=== PATIENT | male | born 1950 | race Caucasian/White ===

== ENCOUNTER 2016-12-19 15:13 | Emergency (ER) | payer OTHER ==
[~2016-12-19] VITALS: Ht 162.6 cm; Wt 72.6 kg
[~2016-12-19 15:13] MED LIST: FINA5TAB1 PO; NIFE30TE8 PO
[2016-12-19 15:22] VITALS: BP 154/75
--- NOTE | 2016-12-19 16:08 | NUR ---
PATIENT TO ER BED 4.
--- NOTE | 2016-12-19 16:11 | NUR ---
EPatient being evaluated by physician at bedside.
[2016-12-19] MEDS ORDERED: LIDOCAINE VISCOUS 2% 20 ML UDC PO ONE (16:15)
--- NOTE | 2016-12-19 16:38 | NUR ---
66/M TO ED WITH C/O SOMETHING IN HIS THROAT STARTING LAST NIGHT. PT STATES HE CANNOT SWALLOW. LUNGS CLEAR BILAT. DENIES PAIN. HR EVEN AND REGULAR. AAOX4. VSS. NO SIGNS OF DISTRESS.
[2016-12-19 18:23] VITALS: BP 151/82
--- NOTE | 2016-12-19 18:26 | NUR ---
Patient discharged with v/s stable. Written and verbal after care instructions given and explained. Patient alert, oriented and verbalized understanding of instructions. Ambulatory with steady gait. All questions addressed prior to discharge. ID band removed. Patient advised to follow up with PMD. Rx of CHLORASEPTIC AND MOTRIN given. Patient educated on indication of medication including possible reaction and side effects. Opportunity to ask questions provided and answered.
== END 2016-12-19 18:26 | disposition home or self-care (01) ==
LOC: MED 15:13
DX: J02.9 Acute pharyngitis, unspecified (principal); E04.1 Nontoxic single thyroid nodule; I10 Essential (primary) hypertension
CPT/HCPCS: 70360; 70490; 93005; 99284

== ENCOUNTER 2017-07-22 18:36 | Inpatient (IN) | payer OTHER ==
[~2017-07-22] VITALS: Ht 165.1 cm; Wt 60.8 kg
[2017-07-22 18:54] VITALS: BP 132/72
--- NOTE | 2017-07-22 19:38 | NUR ---
PT TAKEN TO BED 9
--- NOTE | 2017-07-22 19:45 | NUR ---
67/M C/O 8/10 RLQ ABDOMINAL PAIN, NONRADIATING WITH NAUSEA X 1 DAY. PT DENIES VOMITING. PT REPORTS HE HAD FEVER TODAY, CURRENT TEMP 99.1. BOWEL SOUNDS ACTIVE X 4, TENDERNESS TO RLQ. PT REPORTS HE WAS CONSTIPATED YESTERDAY. PT REPORTS HE WAS PRESCRIBED ANTIBIOTICS BY PCP 2 WEEKS AGO FOR URINARY INFECTION. PMH: HLD, HTN, BPH, HEP C. RX: ADALAT. DENIES V/D; SKIN IS PINK/WARM/DRY; AAOX4 WITH EVEN AND STEADY GAIT; LUNGS CLEAR BL; HR EVEN AND REGULAR; PT DENIES ANY CP, SOB, OR COUGH AT THIS TIME; PATIENT POSITIONED FOR COMFORT; HOB ELEVATED; BEDRAILS UP X2; BED DOWN. ER MD MADE AWARE OF PT STATUS.
--- NOTE | 2017-07-22 20:15 | NUR ---
Dr. Gan evaluating patient at bedside.
[2017-07-22 21:11] LABS: HEMATOCRIT 42.9 % (36-52); HEMOGLOBIN 14.2 g/dL (12.0-18.0); MEAN CORPUSCULAR HEMOGLOBIN 28 pg (27-31); MEAN CORPUSCULAR HGB CONC 33 g/dL (33-37); MEAN CORPUSCULAR VOLUME 86 fL (80-94); PLATELET COUNT (AUTO) 242 K/uL (140-450); RED BLOOD CELL COUNT(AUTO) 4.99 MIL/uL (4.20-6.10); RED CELL DISTRIBUTION WIDTH 12.9 % (11.6-13.7); WHITE BLOOD COUNT (AUTO) 17.9 K/uL (4.8-10.8)
[2017-07-22 21:13] LABS: APPEARANCE,URINE CLEAR (CLEAR); BILIRUBIN,URINE 1+ (NEGATIVE); BLOOD, URINE 3+ (NEGATIVE); LEUKOCYTE ESTERASE ,URINE NEGATIVE (NEGATIVE); NITRITE, URINE NEGATIVE (NEGATIVE); PH,URINE 5.5 (5.0-9.0); UGLUCOSE 1+ (NEGATIVE)
[2017-07-22 21:15] LABS: COLOR,URINE AMBER (YELLOW)
[2017-07-22 21:18] LABS: ANION GAP 8.3 (8-16); CARBON DIOXIDE 31.1 mmol/L (21-32); CREATININE 0.9 mg/dL (0.7-1.3); POTASSIUM 3.4 mmol/L (3.5-5.1)
[2017-07-22 21:25] LABS: RBC,URINE TOO NUMEROUS TO COUN /HPF (0-5); WBC,URINE NONE SEEN /HPF (0-5)
[2017-07-22 21:25] LABS: ALBUMIN 3.7 g/dL (3.4-5.0); TOTAL BILIRUBIN 1.7 mg/dL (0.0-1.0)
[2017-07-22 21:30] LABS: EOSINOPHILS % (MANUAL) 1 % (0-4); LYMPHOCYTES % (MANUAL) 11 % (20-46); MONOCYTES % (MANUAL) 8 % (5-12)
[2017-07-22] MEDS ORDERED: LEVOFLOXACIN 500 MG/D5W PREMIX 100 ML IV ONE (21:35)
[2017-07-22] MEDS ORDERED: metroNIDAZOLE 500 MG/NS PREMIX 100 ML IV ONE (21:35)
[2017-07-22] MEDS ORDERED: MORPHINE SULFATE 4 MG/ML SYR IVP ONE (21:40)
[2017-07-22] MEDS ORDERED: MORPHINE SULFATE 2 MG/ML SYR IVP PRN (22:00)
[2017-07-22] MEDS ORDERED: DOCUSATE SODIUM 100 MG GELCAP PO PRN (22:00)
[2017-07-22] MEDS ORDERED: HYDROcodone/APAP 7.5/325 MG 1 TAB PO PRN (22:00)
[2017-07-22] MEDS ORDERED: ONDANSETRON 4 MG/2 ML VIAL IM/IVP PRN (22:00)
[2017-07-22] MEDS ORDERED: ACETAMINOPHEN 325 MG TAB PO PRN (22:00)
--- NOTE | 2017-07-22 22:11 | NUR ---
X-Ray at bedside.
--- NOTE | 2017-07-22 22:24 | NUR ---
Dr. Aaron evaluating patient at bedside.
--- NOTE | 2017-07-22 22:40 | NUR ---
GAVE REPORT TO MARYCRUZ SMITH AT [facility] FOR TRANSFER OF CARE
[2017-07-22 22:45] LABS: CHOL/HDL RATIO 2.8 (1-4.5); FREE T4 (FREE THYROXINE) 0.9 ng/dL (0.76-1.46); PHOSPHORUS 3.2 mg/dL (2.5-4.9); THYROID STIMULATING HORMONE 0.34 uIU/mL (0.34-3.74)
[2017-07-22 22:48] LABS: PROTHROMBIN TIME 11.6 secs (10.8-13.4)
--- NOTE | 2017-07-22 22:50 | NUR ---
NO PATENT IV ACCESS AT THIS TIME. REPORTED TO HOLLY SMITH FROM TELE TO HANG ZEINAB AND YL IVPB ORDERED ONCE THERE'S IV ACCESS.
--- NOTE | 2017-07-22 22:58 | NUR ---
Patient will be admitted to care of [facility]. Admited to TELE. Will go to room 120A. Belongings list completed. Report to MARYCRUZ SMITH.
--- NOTE | 2017-07-22 23:40 | NUR ---
PATIENT ADMITTED TO THE UNIT VIA ED, BROUGHT BY ANTONIO. PATIENT ABLE TO AMBULATE SELF TO BED WITH NO ASSISTANCE. PATIENT IS AAOX4 ON ROOM AIR. NO SOB OR SIGN OF DISTRESS, IV TO LEFT KNUCKLE UNSTABLE, CHARGE NURSE TO INSERT NEW IV. SKIN INTACT, PATIENT C/O PAIN TO ABDOMEN, MD TO PUT IN MEDICATION, WILL F/U. ORIENTED PATIENT TO ROOM AND CALL LIGHT. DISCUSSED PLAN OF CARE WITH PATIENT. PATIENT VERBALIZED UNDERSTANDING. CALL LIGHT WITHIN REACH. WILL CONTINUE TO MONITOR.
[2017-07-23] VITALS: BP 145/78
[2017-07-23] MEDS: DEXT 5% /NACL 0.9% 1,000 ML IV SCH
[2017-07-23] MEDS ORDERED: POTASSIUM CHLORIDE 10 MEQ TABER PO SCH
[2017-07-23] MEDS: NACL 0.9% 1,000 ML IV SCH ×3 (00:25→17:58)
--- NOTE | 2017-07-23 00:30 | NUR ---
NEW IV STARTED TO LEFT FA 22G, PATENT AND INTACT. PATIENT TOLERATED WELL. ORDERED ABX ADMINISTERED, CALL LIGHT WITHIN REACH. WILL CONTINUE TO MONITOR.
--- NOTE | 2017-07-23 01:55 | NUR ---
PATIENT SLEEPING, NO DISTRESS, CALL LIGHT WITHIN REACH. WILL CONTINUE TO MONITOR.
--- NOTE | 2017-07-23 03:30 | NUR ---
PATIENT SLEEPING. NO SIGNS OF PAIN NOTED. PT IS ON CONTACT ISOLATION FOR POSSIBLE C DIFF. PROTOCOL IN PLACE.
[2017-07-23 04:00] VITALS: BP 140/76
[2017-07-23] MEDS: metroNIDAZOLE 500 MG/NS PREMIX 100 ML IV SCH ×3 (05:31→21:14)
[2017-07-23 05:50] LABS: HEMATOCRIT 38.9 % (36-52); HEMOGLOBIN 12.9 g/dL (12.0-18.0); MEAN CORPUSCULAR HEMOGLOBIN 28 pg (27-31); MEAN CORPUSCULAR HGB CONC 33 g/dL (33-37); MEAN CORPUSCULAR VOLUME 85 fL (80-94); PLATELET COUNT (AUTO) 200 K/uL (140-450); RED BLOOD CELL COUNT(AUTO) 4.56 MIL/uL (4.20-6.10); RED CELL DISTRIBUTION WIDTH 12.8 % (11.6-13.7)
--- NOTE | 2017-07-23 06:00 | NUR ---
DUE MEDS GIVEN. PATIENT SLEEPING. NO DISTRESS. CALL LIGHT WITHIN REACH.
[2017-07-23 06:13] LABS: ANION GAP 9.5 (8-16); CARBON DIOXIDE 28.2 mmol/L (21-32); CREATININE 0.7 mg/dL (0.7-1.3); POTASSIUM 3.7 mmol/L (3.5-5.1)
[2017-07-23 07:08] LABS: LYMPHOCYTES % (MANUAL) 12 % (20-46); MONOCYTES % (MANUAL) 8 % (5-12)
--- NOTE | 2017-07-23 07:20 | NUR ---
ASSUMED CONTINUITY OF CARE. NO SIGNS AND SYMPTOMS OF ACUTE DISTRESS NOTED. INITIAL ASSESSMENT DONE. KEEP COMFORTABLE ON BED. EXPLAINED DIAGNOSIS, PLAN OF CARE, PAIN MANAGEMENT TEACHING, CONTACT ISOLATION PRECAUTION, USE OF CALL LIGHT/BED/TV/BATHROOM. VERBALIZED UNDERSTANDING. CALL LIGHT WITHIN REACH.
--- NOTE | 2017-07-23 07:20 | NUR ---
ENDORSED PT TO DAY SHIFT NURSE. PT IN STABLE CONDITION.
[2017-07-23 08:00] VITALS: BP 138/75
--- NOTE | 2017-07-23 08:00 | NUR ---
Patient's Plan of Care was discussed and reviewed with BRICK MASON: ROSELIA CASILLAS
[2017-07-23] MEDS: NIFEdipine 30 MG TABER PO SCH ×2 (09:00→21:14)
--- NOTE | 2017-07-23 09:02 | NUR ---
SPOKE WITH FIDELIA FROM [facility]. FAXED INITIAL REVIEW TO [facility] [phone] PHONE FIDELIA [phone]
--- NOTE | 2017-07-23 09:13 | NUR ---
PATIENT HAS BEEN SCREENED AND CATEGORIZED MODERATE NUTRITION RISK. PATIENT WILL BE SEEN WITHIN 3-5 DAYS OF ADMISSION. 07/25/17-07/27/[address]
[2017-07-23] MEDS: LACTOBACILLUS RHAMNOSUS GG 1 EACH CAP PO SCH (09:17)
[2017-07-23] MEDS: FINASTERIDE 5 MG TAB PO SCH (09:17)
[2017-07-23] MEDS: PANTOPRAZOLE 40 MG INJ VIAL IVP SCH (10:03)
[2017-07-23 12:00] VITALS: BP 136/79
--- NOTE | 2017-07-23 12:02 | NUR ---
RECEIVED A CALL FROM FIDELIA FROM [facility]. HE NEEDS THE RESIDENT TO CALL DR. NUGENT AT [phone]. DR. LAURA MAGUIRE.
[2017-07-23] MEDS ORDERED: DOL10 PO (12:43)
[2017-07-23] MEDS: KETOROLAC 30 MG/ML VIAL IVP PRN ×2 (13:28→21:20)
--- NOTE | 2017-07-23 15:00 | NUR ---
EXPLAINED AND EDUCATED PT. ABOUT C-DIFF POSITIVE RESULTS AND CONTACT ISOLATION PRECAUTION. VERBALIZED UNDERSTANDING.
[2017-07-23 16:00] VITALS: BP 135/76
--- NOTE | 2017-07-23 19:12 | NUR ---
BEDSIDE REPORT GIVEN TO LIZ MAZA. IVF INFUSING WELL. IN STABLE CONDITION.
--- NOTE | 2017-07-23 19:15 | NUR ---
RECEIVED REPORT FROM AM NURSE. PT RESTING IN BED, AOX4, AMBULATORY, ABLE TO VERBALIZE NEEDS. PANTRY GOODS MAKER IN PLACE. PT DENIES CHEST PAIN, SOB OR S/S OF ACUTE DISTRESS. PT C/O RLQ PAIN, NO REBOUND TENDERNESS. SEE PAIN ASSESSMENT. WILL ADMINISTER PAIN MED ORDERED. PT DENIES NAUSEA/VOMITING. IV ACCESS ASYMPTOMATIC, PATENT AND INTACT. IVF INFUSING WELL. DISCUSSED AND REVIEWED PLAN OF CARE WITH PT. PT VERBALIZED UNDERSTANDING. ALL NEEDS MET. SAFETY MEASURES ENSURED. CALL LIGHT WITHIN REACH. WILL CONTINUE TO MONITOR.
[2017-07-23 20:00] VITALS: BP 162/87
--- NOTE | 2017-07-23 20:21 | NUR ---
PT C/O PAIN. SEE PAIN ASSESSMENT. ADMINISTERED TORADOL IVP PRN ORDERED. ADMINISTERED DUE MEDS WITH EDUCATION. PT VERBALIZED UNDERSTANDING, TOLERATED MEDS WELL. ALL NEEDS MET. IVPB INFUSING WELL. SAFETY MEASURES ENSURED. CALL LIGHT WITHIN REACH. WILL CONTINUE TO MONITOR.
[2017-07-23] MEDS ORDERED: LEVOFLOXACIN 500 MG/D5W PREMIX 100 ML IV SCH (21:00)
[2017-07-23] MEDS ORDERED: metroNIDAZOLE 500 MG/NS PREMIX 100 ML IV SCH (21:00)
[2017-07-23] MEDS ORDERED: INFLUENZA VIRUS VACCINE QUAD 0.5 ML SYR IMVAC SCH (23:40)
[2017-07-23] MEDS ORDERED: PNEUMOCOCCAL VACCINE 23 MCG/0.5 ML VIAL IMVAC SCH (23:40)
[2017-07-24] VITALS: BP 154/76
--- NOTE | 2017-07-24 00:10 | NUR ---
PT SLEEPING COMFORTABLY, NO S/S OF ACUTE DISTRESS. ALL NEEDS MET. IVF INFUSING WELL. SAFETY MEASURES ENSURED. CALL LIGHT WITHIN REACH. WILL CONTINUE TO MONITOR.
--- NOTE | 2017-07-24 02:05 | NUR ---
PT SLEEPING COMFORTABLY, NO S/S OF ACUTE DISTRESS. ALL NEEDS MET. IVF INFUSING WELL. SAFETY MEASURES ENSURED. CALL LIGHT WITHIN REACH. WILL CONTINUE TO MONITOR.
[2017-07-24 04:00] VITALS: BP 138/68
[2017-07-24] MEDS: metroNIDAZOLE 500 MG/NS PREMIX 100 ML IV SCH ×3 (04:59→20:36)
--- NOTE | 2017-07-24 04:59 | NUR ---
ADMINISTERED DUE MED WITH EDUCATION. PT STATED "OK." NO S/S OF DISTRESS. ALL NEEDS MET. IVPB INFUSING WELL. SAFETY MEASURES ENSURED. CALL LIGHT WITHIN REACH. WILL CONTINUE TO MONITOR.
[2017-07-24 06:56] LABS: HEMATOCRIT 40.5 % (36-52); HEMOGLOBIN 13.6 g/dL (12.0-18.0); MEAN CORPUSCULAR HEMOGLOBIN 29 pg (27-31); MEAN CORPUSCULAR HGB CONC 34 g/dL (33-37); MEAN CORPUSCULAR VOLUME 86 fL (80-94); PLATELET COUNT (AUTO) 197 K/uL (140-450); RED BLOOD CELL COUNT(AUTO) 4.72 MIL/uL (4.20-6.10); RED CELL DISTRIBUTION WIDTH 12.8 % (11.6-13.7); WHITE BLOOD COUNT (AUTO) 10.1 K/uL (4.8-10.8)
--- NOTE | 2017-07-24 07:14 | NUR ---
ENDORSED PLAN OF CARE TO AM NURSE. CONDITION STABLE.
--- NOTE | 2017-07-24 07:15 | NUR ---
RECEIVED REPORT FROM MEAT CUTTER APPRENTICE RN. PATIENT IS AAOX4, LUNG SOUNDS ARE CLEAR, BOWEL SOUNDS ARE ACTIVE. NO SIGN AND SYMPTOMS OF DISTRESS NOTED AT THIS TIME. BED IS IN LOWEST POSITION, SIDERAILS UP X2, CALL LIGHT WITHIN REACH. INSTRUCTED PATIENT TO USE CALL LIGHT IF HAS ANY NEEDS, VERBALIZED UNDERSTANDING. WILL CONTINUE TO MONITOR.
[2017-07-24 07:35] LABS: CARBON DIOXIDE 30.4 mmol/L (21-32); CREATININE 0.6 mg/dL (0.7-1.3); POTASSIUM 3.4 mmol/L (3.5-5.1)
[2017-07-24 08:00] VITALS: BP 152/71
[2017-07-24 08:20] LABS: T4 (THYROXINE) 7.5 ug/dL (4.5-12.0)
--- NOTE | 2017-07-24 08:35 | NUR ---
FAXED CONCURRENT REVIEW TO [facility] [phone] PHONE FIDELIA [phone] ALSO FAXED ORDER FOR TRANSFER TO CONTRACTED FACILITY.
[2017-07-24 08:56] LABS: LYMPHOCYTES % (MANUAL) 12 % (20-46); MONOCYTES % (MANUAL) 13 % (5-12)
--- NOTE | 2017-07-24 09:00 | NUR ---
PATIENT ON FULL LIQUIDS, TOLERATING WELL.
[2017-07-24] MEDS: PANTOPRAZOLE 40 MG INJ VIAL IVP SCH (09:29)
[2017-07-24] MEDS: METHADONE 10 MG TAB PO SCH (09:30)
[2017-07-24] MEDS: NIFEdipine 30 MG TABER PO SCH ×2 (09:30→20:35)
[2017-07-24] MEDS: FINASTERIDE 5 MG TAB PO SCH (09:30)
[2017-07-24] MEDS: LACTOBACILLUS RHAMNOSUS GG 1 EACH CAP PO SCH (09:30)
--- NOTE | 2017-07-24 09:34 | NUR ---
SPOKE WITH FIDELIA FROM [facility]. HE SAID THEY PROBABLY WON'T TRANSFER THE PATIENT. HE SAID HE WOULD SPEAK WITH HIS PHYSICIAN.
[2017-07-24] MEDS: DEXT 5% /NACL 0.9% 1,000 ML IV SCH ×2 (09:40→19:40)
[2017-07-24 12:00] VITALS: BP 158/79
[2017-07-24] MEDS ORDERED: POTASSIUM CHLORIDE 10 MEQ TABER PO SCH (12:00)
[2017-07-24] MEDS: VANCOMYCIN 500 MG VIAL PO SCH ×2 (12:26→17:45)
[2017-07-24] MEDS: PHARMACY COMMENTS MC SCH (12:31)
--- NOTE | 2017-07-24 14:35 | NUR ---
ENDORSED PATIENT TO BERENICE SMITH FOR CONTINUITY OF CARE. PATIENT IN STABLE CONDITION.
--- NOTE | 2017-07-24 14:40 | NUR ---
RECEIVED REPORT FROM LUIS WILKINSON. PT IS AWAKE RESTING IN BED, PT IS A/OX4, AMBULATORY, PT HAS IV ON THE LEFT FA, PATENT, INTACT, FLUSHING WELL, NO S/S OF RESPIRATORY DISTRESS OR DISCOMFORT NOTED, SAFETY/FALL PRECAUTIONS ARE IN PLACE, CALL LIGHT IS WITHIN REACH, WILL CONTINUE TO MONITOR.
[2017-07-24 16:00] VITALS: BP 148/64
--- NOTE | 2017-07-24 16:12 | NUR ---
PROVIDED PT A CLEAN GOWN AND CLEAN BLANKET, ALL NEEDS ARE MET AT THIS TIME, CALL LIGHT WITHIN REACH, WILL CONTINUE TO MONITOR.
--- NOTE | 2017-07-24 19:15 | NUR ---
ENDORSED PT TO ASSISTANT CLINICAL NURSE MANAGER NURSE FOR CONTINUITY OF CARE, PT STABLE AT THIS TIME.
--- NOTE | 2017-07-24 19:20 | NUR ---
RECEIVED REPORT FROM AM NURSE. PT RESTING IN BED, AOX4, AMBULATORY, ABLE TO VERBALIZE NEEDS. DINING ROOM MAID IN PLACE. PT DENIES CHEST PAIN, SOB OR S/S OF ACUTE DISTRESS. PT DENIES ABD PAIN, NO REBOUND TENDERNESS. PT DENIES NAUSEA/VOMITING, REPORTS BEING ABLE TO TOLERATE FULL LIQUID DIET, WILL NOTIFY MD. PT REPORTS HAVING 3X BM DURING THE DAY, DESCRIBES STOOL "IT'S NOT LIQUID ANYMORE, GETTING BETTER" IV ACCESS ASYMPTOMATIC, PATENT AND INTACT. IVF INFUSING WELL. DISCUSSED AND REVIEWED PLAN OF CARE WITH PT. PT VERBALIZED UNDERSTANDING. ALL NEEDS MET. SAFETY MEASURES ENSURED. CALL LIGHT WITHIN REACH. WILL CONTINUE TO MONITOR.
[2017-07-24 20:00] VITALS: BP 146/66
--- NOTE | 2017-07-24 20:38 | NUR ---
ADMINISTERED DUE MEDS WITH EDUCATION. PT VERBALIZED UNDERSTANDING, TOLERATED MEDS WELL. ALL NEEDS MET. IVPB INFUSING WELL. SAFETY MEASURES ENSURED. CALL LIGHT WITHIN REACH. WILL CONTINUE TO MONITOR.
[2017-07-24] MEDS ORDERED: INFLUENZA VIRUS VACCINE QUAD 0.5 ML SYR IMVAC PRN (22:25)
[2017-07-24] MEDS ORDERED: PNEUMOCOCCAL VACCINE 23 MCG/0.5 ML VIAL IMVAC PRN (22:25)
[2017-07-25] VITALS: BP 137/56
[2017-07-25] MEDS: VANCOMYCIN 500 MG VIAL PO SCH ×3 (00:03→12:03)
[2017-07-25] MEDS: NACL 0.9% 1,000 ML IV SCH ×2 (00:05→09:55)
--- NOTE | 2017-07-25 00:05 | NUR ---
PT RESTING COMFORTABLY, NO S/S OF ACUTE DISTRESS. ADMINISTERED DUE MEDS WITH EDUCATION. PT VERBALIZED UNDERSTANDING, TOLERATED MED WELL. ALL NEEDS MET. IVF INFUSING WELL. SAFETY MEASURES ENSURED. CALL LIGHT WITHIN REACH. WILL CONTINUE TO MONITOR.
[2017-07-25 04:00] VITALS: BP 124/63
[2017-07-25] MEDS: metroNIDAZOLE 500 MG/NS PREMIX 100 ML IV SCH ×2 (04:09→15:08)
--- NOTE | 2017-07-25 04:10 | NUR ---
PT SLEEPING COMFORTABLY, AROUSABLE TO NAME. NO S/S OF ACUTE DISTRESS. ADMINISTERED DUE MED WITH EDUCATION. PT VERBALIZED UNDERSTANDING, TOLERATED MED WELL. ALL NEEDS MET. IVF INFUSING WELL. SAFETY MEASURES ENSURED. CALL LIGHT WITHIN REACH. WILL CONTINUE TO MONITOR.
[2017-07-25] MEDS: PHARMACY COMMENTS MC SCH ×3 (05:00→12:00)
[2017-07-25 06:14] LABS: BASOPHILS # (AUTO) 0.4 K/uL (0.00-0.22); BASOPHILS % (AUTO) 4.3 % (0.0-2.0); EOSINOPHILS # (AUTO) 0.2 K/uL (0-0.4); EOSINOPHILS % (AUTO) 1.7 % (0.0-4.0); HEMATOCRIT 38.2 % (36-52); HEMOGLOBIN 12.3 g/dL (12.0-18.0); LYMPHOCYTES # (AUTO) 1.1 K/uL (2.0-11.5); LYMPHOCYTES % (AUTO) 12.6 % (20.5-51.1); MEAN CORPUSCULAR HEMOGLOBIN 28 pg (27-31); MEAN CORPUSCULAR HGB CONC 32 g/dL (33-37); MEAN CORPUSCULAR VOLUME 87 fL (80-94); MONOCYTES # (AUTO) 1.3 K/uL (0.8-1.0); MONOCYTES % (AUTO) 14.9 % (1.7-9.3); NEUTROPHILS # (AUTO) 5.9 K/uL (1.8-7.7); NEUTROPHILS % (AUTO) 66.5 % (42.2-75.2); PLATELET COUNT (AUTO) 226 K/uL (140-450); RED BLOOD CELL COUNT(AUTO) 4.39 MIL/uL (4.20-6.10); WHITE BLOOD COUNT (AUTO) 8.9 K/uL (4.8-10.8)
[2017-07-25 06:38] LABS: ANION GAP 7.4 (8-16); CARBON DIOXIDE 31.6 mmol/L (21-32); CREATININE 0.6 mg/dL (0.7-1.3)
--- NOTE | 2017-07-25 07:22 | NUR ---
ENDORSED PLAN OF CARE TO AM NURSE. CONDITION STABLE.
--- NOTE | 2017-07-25 07:22 | NUR ---
RECEIVED REPORT FROM NIGHT NURSE, PT IS AAOX4, ON ROOM AIR, IV TO LEFT FA 22G INFUSING WELL, SKIN INTACT, INITIAL ASSESSMENT COMPLETED, REVIEWED PLAN OF CARE WITH PT, PT VERBALIZED UNDERSTANDING, ALL SAFETY PRECAUTIONS IN PLACE, CALL LIGHT WITHIN REACH. WILL CONTINUE TO MONITOR.
[2017-07-25 08:00] VITALS: BP 138/54
[2017-07-25] MEDS ORDERED: VAN500I PO (08:44)
[2017-07-25] MEDS ORDERED: METR250T2 PO (08:44)
[2017-07-25] MEDS ORDERED: LACT10CA PO (08:44)
[2017-07-25] MEDS ORDERED: DOL10 PO (08:48)
[2017-07-25] MEDS: NIFEdipine 30 MG TABER PO SCH (09:37)
[2017-07-25] MEDS: PANTOPRAZOLE 40 MG INJ VIAL IVP SCH (09:44)
[2017-07-25] MEDS: LACTOBACILLUS RHAMNOSUS GG 1 EACH CAP PO SCH (09:45)
[2017-07-25] MEDS: FINASTERIDE 5 MG TAB PO SCH (09:45)
[2017-07-25] MEDS: METHADONE 10 MG TAB PO SCH (09:45)
--- NOTE | 2017-07-25 09:52 | NUR ---
DUE MEDICATIONS GIVEN, PT TOLERATED WELL, PT CURRENTLY RESTING IN BED. ALL NEEDS MET. WILL CONTINUE TO MONITOR.
[2017-07-25] MEDS ORDERED: POTASSIUM CHLORIDE 10 MEQ TABER PO SCH (10:00)
[2017-07-25] MEDS ORDERED: POTASSIUM CHLORIDE 20 MEQ, LIDOCAINE 1% 25 MG in NACL 0.9% 250 ML IV SCH (11:00)
[2017-07-25 12:00] VITALS: BP 126/71
--- NOTE | 2017-07-25 12:15 | NUR ---
CHECKED IN ON PT, PT CURRENTLY READING. NO S/S OF DISTRESS NOTED. ALL NEEDS MET. CALL LIGHT WITHIN REACH. WILL CONTINUE TO MONITOR.
--- NOTE | 2017-07-25 14:25 | NUR ---
CHECKED IN ON PT,PT STATES HE HAD 2 SOLID BM. ALL NEEDS MET. CALL LIGHT WITHIN REACH. WILL CONTINUE TO MONITOR.
[2017-07-25] MEDS ORDERED: INFLUENZA VIRUS VACCINE QUAD 0.5 ML SYR IMVAC SCH (15:45)
[2017-07-25 16:00] VITALS: BP 128/71
--- NOTE | 2017-07-25 16:35 | NUR ---
DISCHARGE EDUCATION GIVEN, FOLLOW UP INFORMATION GIVEN, PRESCRIPTION EDUCATION GIVEN, PT VERBALIZED UNDERSTANDING, MEDICATION FROM PHARMACY GIVEN TO PT, IV REMOVED TIP INTACT, ALL PERSONAL BELONGINGS WITH PT. Addendum: 07/25/17 at 1652 by Marcy Nunn RN FLU AND PNEUMONIA VACCINES GIVEN
--- NOTE | 2017-07-25 16:49 | NUR ---
PT WAS WHEELED OUT TO FRONT LOBBY IN STABLE CONDITION, SON IN TO PICK PT UP.
== END 2017-07-25 16:49 | disposition home or self-care (01) | DRG 371 ==
LOC: MED 18:36 → MTU 22:06
PROVIDERS: ADMIT Family Medicine; ATTEND Family Medicine
DX: A04.72 Enterocolitis due to Clostridium difficile, not specified as recurrent (principal); N17.0 Acute kidney failure with tubular necrosis; K82.1 Hydrops of gallbladder; E87.6 Hypokalemia; K80.20 Calculus of gallbladder without cholecystitis without obstruction; I10 Essential (primary) hypertension; N40.0 Benign prostatic hyperplasia without lower urinary tract symptoms; K40.90 Unilateral inguinal hernia, without obstruction or gangrene, not specified as recurrent; K46.9 Unspecified abdominal hernia without obstruction or gangrene; E78.5 Hyperlipidemia, unspecified; K80.80 Other cholelithiasis without obstruction; R31.9 Hematuria, unspecified; G31.89 Other specified degenerative diseases of nervous system; B19.20 Unspecified viral hepatitis C without hepatic coma; E11.9 Type 2 diabetes mellitus without complications; F11.10 Opioid abuse, uncomplicated; Z83.3 Family history of diabetes mellitus
CPT/HCPCS: 36415; 71010; 76705; 76770; 80048; 80053; 81001; 82150; 82272; 83605; 83690; 83735; 84100; 84436; 84439; 84443; 84479; 85025; 85610; 85730; 87040; 87045; 87070; 87081; 87086; 89055; 90658; 90732; 93005; 99285; C9113; J1885; J1956; J2001; J2270; J3370; J3480; J3490; J7030; J7042; Q0092

== ENCOUNTER 2017-08-12 15:46 | Emergency (ER) | payer OTHER ==
[~2017-08-12] VITALS: Ht 162.6 cm; Wt 60.3 kg
[~2017-08-12 15:46] MED LIST changes: +DOL10 PO; +LACT10CA PO; +METR250T2 PO; +VAN500I PO
[2017-08-12 16:08] VITALS: BP 135/70
--- NOTE | 2017-08-12 16:26 | NUR ---
Patient to bed 12.
--- NOTE | 2017-08-12 16:32 | NUR ---
PT REFERRED TO ER PER PCP FOR EVALUATION OF SEVERE LOWER ABDOMINAL PAIN X1 WEEK. PT STATES HE WAS HOSPITALIZED AT [facility] AND WAS DISCHARGED LAST NOC. HX OF HEP C, HYPERLIPIDEMIA, BPH, GALLSTONES, HTN.PT STATES HE ALSO PASSED STONE IN HIS URINE THIS MORNING. FEELS NAUSEOUS DENIES VOMITTING; SKIN IS PINK/WARM/DRY; AAOX4 WITH EVEN AND STEADY GAIT; LUNGS CLEAR BL; HR EVEN AND REGULAR; PT DENIES ANY FEVER, CP, SOB, OR COUGH AT THIS TIME; PATIENT STATES PAIN OF 9/10 AT THIS TIME;PATIENT POSITIONED FOR COMFORT; HOB ELEVATED; BEDRAILS UP X2; BED DOWN. ER MD MADE AWARE OF PT STATUS.
--- NOTE | 2017-08-12 16:41 | NUR ---
DR COOL AT BEDSIDE.
[2017-08-12 17:18] LABS: BASOPHILS # (AUTO) 0.1 K/uL (0.00-0.22); BASOPHILS % (AUTO) 1.2 % (0.0-2.0); EOSINOPHILS # (AUTO) 0.1 K/uL (0-0.4); EOSINOPHILS % (AUTO) 1.1 % (0.0-4.0); HEMATOCRIT 37.2 % (36-52); HEMOGLOBIN 12.7 g/dL (12.0-18.0); LYMPHOCYTES # (AUTO) 0.8 K/uL (2.0-11.5); LYMPHOCYTES % (AUTO) 10.5 % (20.5-51.1); MEAN CORPUSCULAR HEMOGLOBIN 29 pg (27-31); MEAN CORPUSCULAR HGB CONC 34 g/dL (33-37); MEAN CORPUSCULAR VOLUME 84 fL (80-94); MONOCYTES % (AUTO) 25.6 % (1.7-9.3); NEUTROPHILS % (AUTO) 61.6 % (42.2-75.2); PLATELET COUNT (AUTO) 292 K/uL (140-450); RED BLOOD CELL COUNT(AUTO) 4.43 MIL/uL (4.20-6.10)
[2017-08-12 17:44] LABS: ANION GAP 10.9 (8-16); CARBON DIOXIDE 31.5 mmol/L (21-32); CHLORIDE 98 mmol/L (98-107); GFR ARICAN-AMERICAN 96 mL/min (>90); GLUCOSE 104 mg/dL (74-106); POTASSIUM 3.4 mmol/L (3.5-5.1); SODIUM SERUM 137 mmol/L (136-145); UREA NITROGEN, BLOOD 18 mg/dL (7-18)
[2017-08-12 17:51] LABS: ALBUMIN 3.1 g/dL (3.4-5.0); ASPARTATE AMINOTRANSFERASE 22 U/L (15-37); LIPASE 42 U/L (73-393)
[2017-08-12 17:59] LABS: APPEARANCE,URINE CLEAR (CLEAR); BILIRUBIN,URINE NEGATIVE (NEGATIVE); BLOOD, URINE 1+ (NEGATIVE); LEUKOCYTE ESTERASE ,URINE NEGATIVE (NEGATIVE); NITRITE, URINE NEGATIVE (NEGATIVE); UGLUCOSE NEGATIVE (NEGATIVE)
[2017-08-12 18:04] LABS: COLOR,URINE AMBER (YELLOW)
[2017-08-12 18:05] LABS: BARBITURATE, URINE NEG. ng/ml (NEG <=200); BENZODIAZEPINE, URINE NEG. ng/mL (NEG <=200); CANNABINOID, URINE NEG. ng/mL (NEG <=50); COCAINE, URINE POS. ng/mL (NEG <=300); OPIATE, URINE POS. ng/mL (NEG <=2000); PHENCYCLIDINE SCREEN,URINE NEG. ng/mL (NEG <=25)
[2017-08-12 18:19] LABS: CALCIUM OXALATE CRYSTALS,UR 0-10 /HPF (None Seen); RBC,URINE 0-5 (RARE) /HPF (0-5); WBC,URINE 0-5 (RARE) /HPF (0-5)
--- NOTE | 2017-08-12 19:15 | NUR ---
Pt report given to LUIS CORNEJO. Transfer of care at this time.
--- NOTE | 2017-08-12 19:45 | NUR ---
PT RETURN FROM CT
--- NOTE | 2017-08-12 19:48 | NUR ---
Dr. Hernandez evaluating patient at bedside.
--- NOTE | 2017-08-12 20:09 | NUR ---
PATIENT TAKEN TO CT VIA WHEELCHAIR.
[2017-08-12 22:00] VITALS: BP 131/72
--- NOTE | 2017-08-12 22:00 | NUR ---
Patient discharged with v/s stable. Written and verbal after care instructions given and explained. Patient alert, oriented and verbalized understanding of instructions. Ambulatory with steady gait. All questions addressed prior to discharge. ID band removed. Patient advised to follow up with PMD. Rx of FLAGYL 500MG AND BENTYL 20MG given. Patient educated on indication of medication including possible reaction and side effects. Opportunity to ask questions provided and answered.
== END 2017-08-12 22:00 | disposition home or self-care (01) ==
LOC: MED 15:46
DX: R10.9 Unspecified abdominal pain (principal); R30.9 Painful micturition, unspecified; I10 Essential (primary) hypertension; E78.5 Hyperlipidemia, unspecified; Z79.899 Other long term (current) drug therapy
CPT/HCPCS: 36415; 71010; 74177; 80053; 80305; 81001; 82140; 82550; 83690; 84484; 85025; 87040; 93005; 99285; G0482; Q9967

== ENCOUNTER 2018-03-31 11:58 | Emergency (ER) | payer OTHER ==
[~2018-03-31] VITALS: Ht 162.6 cm; Wt 63.5 kg
--- NOTE | 2018-03-31 12:04 | NUR ---
PATIENT TO BED 11 AT THIS TIME.
--- NOTE | 2018-03-31 12:05 | NUR ---
67YO M TO ER FOR C/O LEFT GLUTEAL/HIP POSSIBLE ABSCESS X9DAYS WITH PAIN. POSSIBLE CACTUS THORN INJURY WHILE GARDENING PER PT. REDNESS, WARM TO TOUCH, FIRM, TENDERNESS TO LEFT HIP/GLUT. PT AWAKE, ALERT, ORIENTED TO PERSON, PLACE, TIME AND EVENT, PERRLA, PT DENIES ANY CP, SOB, COUGH, N/V/D OR FEVER AT THIS TIME. WILL CONTINUE TO MONITOR. PT POSITIONED FOR COMFORT. ER MD MADE AWARE. PAIN 05/16 ---last tetanus < 1 yr hx--htn rx---nifedipine
[2018-03-31 12:06] VITALS: BP 137/72
--- NOTE | 2018-03-31 12:25 | NUR ---
Patient being evaluated by physician at bedside.
[2018-03-31] MEDS ORDERED: NACL 0.9% 1,000 ML IV SCH (12:28)
[2018-03-31] MEDS ORDERED: KETOROLAC 30 MG/ML VIAL IVP ONE (12:30)
[2018-03-31] MEDS ORDERED: PIPERACILLIN/TAZOBACTAM 4.5 GM in DEXTROSE 5% 100 ML IV ONE (12:30)
[2018-03-31] MEDS ORDERED: MORPHINE SULFATE 4 MG/ML SYR IVP ONE (12:30)
[2018-03-31] MEDS ORDERED: VANCOMYCIN 1,000 MG in DEXTROSE 5% 250 ML IV ONE (12:30)
[2018-03-31] MEDS ORDERED: ONDANSETRON 4 MG/2 ML VIAL IVP ONE (12:30)
[2018-03-31] MEDS ORDERED: PIPERACILLIN/TAZOBACTAM 2.25 GM VIAL IV ONE (12:51)
[2018-03-31 13:40] LABS: BASOPHILS # (AUTO) 0.1 K/uL (0.00-0.22); BASOPHILS % (AUTO) 0.7 % (0.0-2.0); EOSINOPHILS # (AUTO) 0.1 K/uL (0-0.4); EOSINOPHILS % (AUTO) 0.8 % (0.0-4.0); HEMATOCRIT 37.7 % (36-52); HEMOGLOBIN 12.7 g/dL (12.0-18.0); LYMPHOCYTES # (AUTO) 2.1 K/uL (2.0-11.5); LYMPHOCYTES % (AUTO) 15.3 % (20.5-51.1); MEAN CORPUSCULAR HEMOGLOBIN 28 pg (27-31); MEAN CORPUSCULAR HGB CONC 34 g/dL (33-37); MEAN CORPUSCULAR VOLUME 83.5 fL (80-94); MONOCYTES % (AUTO) 7.6 % (1.7-9.3); NEUTROPHILS # (AUTO) 10.1 K/uL (1.8-7.7); NEUTROPHILS % (AUTO) 75.6 % (42.2-75.2); PLATELET COUNT (AUTO) 226 K/uL (140-450); RED BLOOD CELL COUNT(AUTO) 4.52 MIL/uL (4.20-6.10); RED CELL DISTRIBUTION WIDTH 13.8 % (11.6-13.7); WHITE BLOOD COUNT (AUTO) 13.4 K/uL (4.8-10.8)
[2018-03-31 14:22] LABS: ALBUMIN 3.1 g/dL (3.4-5.0); ANION GAP 12.1 (8-16); CARBON DIOXIDE 29.8 mmol/L (21-32); CREATININE 0.9 mg/dL (0.7-1.3); TOTAL BILIRUBIN 0.9 mg/dL (0.0-1.0)
[2018-03-31 14:24] LABS: POTASSIUM 2.9 mmol/L (3.5-5.1)
--- NOTE | 2018-03-31 14:47 | NUR ---
PT SINGED CT WITH CONTRAST CONCENT
--- NOTE | 2018-03-31 14:49 | NUR ---
PT TO CT VIA W/C, PT IN STABLE CONDITION. RR EVEN AND UNLABORED.
[2018-03-31] MEDS ORDERED: VANCOMYCIN 1,000 MG VIAL ONE (15:15)
[2018-03-31 16:16] LABS: APPEARANCE,URINE CLEAR (CLEAR); BILIRUBIN,URINE NEGATIVE (NEGATIVE); BLOOD, URINE TRACE-I (NEGATIVE); COLOR,URINE YELLOW (YELLOW); LEUKOCYTE ESTERASE ,URINE NEGATIVE (NEGATIVE); NITRITE, URINE NEGATIVE (NEGATIVE); PH,URINE 5.5 (5.0-9.0); UGLUCOSE NEGATIVE (NEGATIVE)
[2018-03-31 16:53] LABS: RBC,URINE 0-5 (RARE) /HPF (0-5)
[2018-03-31 16:54] LABS: WBC,URINE NONE SEEN /HPF (0-5)
[2018-03-31 18:15] VITALS: BP 154/79
== END 2018-03-31 18:15 | disposition short-term general hospital (02) ==
LOC: MED 11:58
DX: M71.152 Other infective bursitis, left hip (principal); L02.416 Cutaneous abscess of left lower limb; I10 Essential (primary) hypertension; Y93.89 Activity, other specified
CPT/HCPCS: 36415; 72193; 80053; 81001; 83605; 85025; 85651; 86140; 87040; 96365; 96366; 96367; 96375; 99285; J1885; J2270; J2405; J2543; J3370; J7060; Q9967

== ENCOUNTER 2018-07-23 10:23 | Emergency (ER) | payer OTHER ==
[~2018-07-23] VITALS: Ht 165.1 cm; Wt 64.4 kg
[2018-07-23 10:30] VITALS: BP 106/61
--- NOTE | 2018-07-23 10:37 | NUR ---
PT CAME INTO THE ED DUE TO C/O LRQ PAIN X 1 HR. LAST BOWEL MOVEMENT WAS 3 DAYS AGO. PAIN 7/10 DULL THAT IS NON RADIATING IN RLQ . DENIES FEVER/CHILLS. DENIES N/V/D. PT. STATES " I JUST DONT FEEL GOOD". RR EVEN AND UNLABORED. ABD ROUND AND SOFT TO PALPATION NON TENDER. ER MD MADE AWARE. SAFETY PRECAUTIONS IMPLEMENTED. WILL CONTINUE TO MONITOR. URINE SAMPLE PROVIDED.
[2018-07-23] MEDS ORDERED: KETOROLAC 60 MG/2 ML VIAL IM ONE (10:55)
--- NOTE | 2018-07-23 11:11 | NUR ---
LAB AT BEDSIDE AT THIS TIME. VSS.
[2018-07-23 11:17] LABS: APPEARANCE,URINE CLEAR (CLEAR); COLOR,URINE YELLOW (YELLOW)
[2018-07-23 11:19] LABS: BILIRUBIN,URINE NEGATIVE (NEGATIVE); UGLUCOSE NEGATIVE (NEGATIVE)
[2018-07-23 11:20] LABS: BLOOD, URINE NEGATIVE (NEGATIVE); LEUKOCYTE ESTERASE ,URINE NEGATIVE (NEGATIVE); NITRITE, URINE NEGATIVE (NEGATIVE)
[2018-07-23 11:38] LABS: BASOPHILS % (AUTO) 0.7 % (0.0-2.0); EOSINOPHILS % (AUTO) 0.6 % (0.0-4.0); HEMATOCRIT 41.9 % (36-52); HEMOGLOBIN 14.1 g/dL (12.0-18.0); LYMPHOCYTES # (AUTO) 1.1 K/uL (2.0-11.5); LYMPHOCYTES % (AUTO) 20.4 % (20.5-51.1); MEAN CORPUSCULAR HEMOGLOBIN 28 pg (27-31); MEAN CORPUSCULAR HGB CONC 34 g/dL (33-37); MONOCYTES # (AUTO) 0.3 K/uL (0.8-1.0); MONOCYTES % (AUTO) 6.3 % (1.7-9.3); PLATELET COUNT (AUTO) 190 K/uL (140-450); RED BLOOD CELL COUNT(AUTO) 4.98 MIL/uL (4.20-6.10); RED CELL DISTRIBUTION WIDTH 14.3 % (11.6-13.7); WHITE BLOOD COUNT (AUTO) 5.5 K/uL (4.8-10.8)
[2018-07-23 11:46] LABS: ALBUMIN 4.1 g/dL (3.4-5.0); ANION GAP 13.1 (8-16); CARBON DIOXIDE 25.7 mmol/L (21-32); CREATININE 1.1 mg/dL (0.7-1.3); POTASSIUM 3.8 mmol/L (3.5-5.1); TOTAL BILIRUBIN 0.7 mg/dL (0.0-1.0)
--- NOTE | 2018-07-23 12:30 | NUR ---
PT. RESTING COMFORTABLY IN BED, RR EVEN AND UNLABORED. VSS. WILL CONTINUE TO MONITOR. PROVIDED WITH CUP OF WATER.
--- NOTE | 2018-07-23 13:35 | NUR ---
PT. IN ROOM RESTING COMFORTABLY , RR EVEN AND UNLABORED. WILL CONTINUE TO MONITOR.
[2018-07-23 14:05] VITALS: BP 112/60
--- NOTE | 2018-07-23 14:05 | NUR ---
Patient discharged with v/s stable. Written and verbal after care instructions given and explained. Patient alert, oriented and verbalized understanding of instructions. Ambulatory with steady gait. All questions addressed prior to discharge. ID band removed. Patient advised to follow up with PMD. Rx of REGLAN 10MG, HYDROXYCINE 25MG given. Patient educated on indication of medication including possible reaction and side effects. Opportunity to ask questions provided and answered.
== END 2018-07-23 14:05 | disposition home or self-care (01) ==
LOC: MED 10:23
DX: K58.1 Irritable bowel syndrome with constipation (principal); F41.9 Anxiety disorder, unspecified; I10 Essential (primary) hypertension; Z79.899 Other long term (current) drug therapy
CPT/HCPCS: 36415; 74022; 80053; 81003; 83690; 85025; 96372; 99285; J1885

== ENCOUNTER 2019-10-17 13:02 | Emergency (ER) | payer OTHER ==
[~2019-10-17] VITALS: Ht 165.1 cm; Wt 68.9 kg
[2019-10-17 13:08] VITALS: BP 140/67
--- NOTE | 2019-10-17 13:11 | NUR ---
PATIENT AMBULATED WITH STEADY GAIT TO BE 8.
--- NOTE | 2019-10-17 13:30 | NUR ---
69/M BIB SELF C/O GENERALIZED ABDOMINAL PAIN 4/10 & NAUSEA AFTER EATING CHICKEN 2 HOURS AGO. LAST BM TODAY: LOOSE STOOL. ABDOMEN SOFT. HX: HLD, HTN, HEP C, CIRRHOSIS. PATIENT POSITIONED FOR COMFORT; HOB ELEVATED; BEDRAILS UP X1; BED DOWN. ER MD MADE AWARE OF PT STATUS.
[2019-10-17] MEDS ORDERED: ONDANSETRON 4 MG ODT PO ONE (13:55)
[2019-10-17 14:48] VITALS: BP 127/57
--- NOTE | 2019-10-17 14:48 | NUR ---
Patient discharged with v/s stable. Written and verbal after care instructions given and explained. Patient verbalized understanding. Ambulatory with steady gait. All questions addressed prior to discharge. Advised to follow up with PMD.
== END 2019-10-17 14:48 | disposition home or self-care (01) ==
LOC: MED 13:02
DX: R11.0 Nausea (principal); I10 Essential (primary) hypertension; E78.5 Hyperlipidemia, unspecified; Z79.899 Other long term (current) drug therapy; Z79.2 Long term (current) use of antibiotics
CPT/HCPCS: 81002; 93005; 99283; Q0162

== ENCOUNTER 2021-04-19 14:19 | Emergency (ER) | payer OTHER ==
[~2021-04-19] VITALS: Ht 165.1 cm; Wt 70.3 kg
[~2021-04-19 14:19] MED LIST changes: +METR-520 PO; -METR250T2 PO; +NIFE30TA36 PO; -NIFE30TE8 PO
[2021-04-19 14:30] VITALS: BP 110/66
--- NOTE | 2021-04-19 14:33 | NUR ---
TO LOBBY A/W BED AMBULATORY
[2021-04-19] MEDS ORDERED: ACETAMINOPHEN EXTRA STRENGTH 500 MG TAB PO ONE (14:50)
[2021-04-19] MEDS ORDERED: KETOROLAC 30 MG/ML VIAL IM ONE (14:50)
[2021-04-19] MEDS ORDERED: NAPR-54 PO (15:54)
== END 2021-04-19 16:06 | disposition home or self-care (01) ==
LOC: MED 14:19
DX: R07.81 Pleurodynia (principal); I10 Essential (primary) hypertension; Z79.899 Other long term (current) drug therapy
CPT/HCPCS: 71101; 96372; 99283; J1885

== ENCOUNTER 2021-05-16 10:48 | Emergency (ER) | payer OTHER ==
[~2021-05-16] VITALS: Ht 165.1 cm; Wt 69.9 kg
[~2021-05-16 10:48] MED LIST changes: +NAPR-54 PO
[2021-05-16 11:09] VITALS: BP 156/83
--- NOTE | 2021-05-16 11:33 | NUR ---
pt ambulated to bed 12
--- NOTE | 2021-05-16 11:39 | NUR ---
70 YO MALE BIBS C/O BUG BITES, PT HAS THREE BUG BITES TO BILATERAL ARMS AND ONE ON RIGHT FINGER. BITES APPEAR RED, SWOLLEN, AND WARM TO TOUCH. PT STATES THEY ARE ITCHING. HE APPLIED CALAMINE LOTION AND NEOSPORIN TO SITE. DENIES FEVER, CHILLS, N/V/D. PT IS A&OX4, RR EVEN AND UNLABORED. PMH: HTN, HYPERLIPIDEMIA, CIRRHOSIS NKDA
[2021-05-16] MEDS ORDERED: LORA10TA19 PO (11:55)
[2021-05-16] MEDS ORDERED: FLUO0.0210 TP (11:55)
[2021-05-16 12:08] VITALS: BP 156/83
--- NOTE | 2021-05-16 12:08 | NUR ---
Patient discharged with v/s stable. Written and verbal after care instructions given and explained. Patient alert, oriented and verbalized understanding of instructions. Ambulatory with steady gait. All questions addressed prior to discharge. ID band removed. Patient advised to follow up with PMD. Rx of SYNALAR 0.025% OINT, LORATADINE given. Patient educated on indication of medication including possible reaction and side effects. Opportunity to ask questions provided and answered.
== END 2021-05-16 12:08 | disposition home or self-care (01) ==
LOC: MED 10:48
DX: S50.861A Insect bite (nonvenomous) of right forearm, initial encounter (principal); S50.862A Insect bite (nonvenomous) of left forearm, initial encounter; I10 Essential (primary) hypertension; Z79.899 Other long term (current) drug therapy; Z90.49 Acquired absence of other specified parts of digestive tract; W57.XXXA Bitten or stung by nonvenomous insect and other nonvenomous arthropods, initial encounter; Y93.89 Activity, other specified; Y92.89 Other specified places as the place of occurrence of the external cause; Y99.8 Other external cause status
CPT/HCPCS: 99282